=== PATIENT | female | born 1955 | race Caucasian/White ===

== ENCOUNTER 2018-11-23 15:56 | Emergency (ER) | payer SELFPAY ==
[~2018-11-23] VITALS: Ht 162.6 cm; Wt 72.7 kg
[~2018-11-23 15:56] MED LIST: NOCURR
[2018-11-23 16:15] LABS: GLUCOSE,POINT OF CARE 84 MG/DL (70-110)
[2018-11-23] MEDS ORDERED: METF-960 PO (17:47)
[2018-11-23 18:05] VITALS: BP 132/65
== END 2018-11-23 19:02 | disposition left against medical advice (07) ==
LOC: EMS 15:57
DX: M79.605 Pain in left leg (principal); Z53.21 Procedure and treatment not carried out due to patient leaving prior to being seen by health care provider